=== PATIENT | male | born 1975 | race Two or more races ===

== ENCOUNTER 2020-06-26 15:19 | Emergency (ER) | payer SELFPAY ==
[~2020-06-26] VITALS: Ht 172.7 cm; Wt 68.0 kg
[2020-06-26 15:47] LABS: *BILIRUBIN,URIN NEGATIVE (NEGATIVE); *BLOOD, URINE NEGATIVE (NEGATIVE); *CLARITY,URINE CLEAR (CLEAR); *COLOR,URINE YELLOW (YELLOW); *KETONES,URINE NEGATIVE (NEGATIVE); *UROBILINOGEN,URINE 0.2 E.U./dl (NORMAL); LEUKOCYTE ESTERASE ,URINE NEGATIVE (NEGATIVE); NITRITE, URINE NEGATIVE (NEGATIVE); UGLUCOSE NEGATIVE (NEGATIVE)
--- NOTE | 2020-06-26 16:33 | NUR ---
Patient discharged to home in stable condition with brisk steady gait. Written and verbal after care instructions given. Patient verbalizes understanding & compliance of instructions. Stressed follow up with urologist & his primary doctor or return to ER for worsening s/s.
== END 2020-06-26 16:33 | disposition home or self-care (01) ==
LOC: ER 15:24
DX: L03.115 Cellulitis of right lower limb (principal); N48.1 Balanitis
CPT/HCPCS: 76870; A4663